=== PATIENT | female | born 1945 | race Caucasian/White ===

== ENCOUNTER → 2019-12-05 09:49 | Outpatient (BNVA) | payer MEDICARE, OTHER, SELFPAY | PROVIDERS: Family Provider Family Medicine; PCP Family Medicine; Visit Provider Internal Medicine Rheumatology | DX: Z79.899 Other long term (current) drug therapy (principal); Z11.59 Encounter for screening for other viral diseases; Z11.1 Encounter for screening for respiratory tuberculosis; R76.8 Other specified abnormal immunological findings in serum; M19.90 Unspecified osteoarthritis, unspecified site; Z72.89 Other problems related to lifestyle | CPT/HCPCS: 36415; 80076; 82565; 85025; 85651; 86140; 86480; 86704; 86803; 87340 ==

== ENCOUNTER → 2019-12-05 10:04 | Outpatient (BNVA) | payer MEDICARE, OTHER, SELFPAY | PROVIDERS: Family Provider Family Medicine; PCP Family Medicine; Visit Provider Internal Medicine Rheumatology | DX: Z79.899 Other long term (current) drug therapy (principal); R76.8 Other specified abnormal immunological findings in serum; M19.90 Unspecified osteoarthritis, unspecified site | CPT/HCPCS: 85025 ==

== ENCOUNTER → 2019-12-10 11:25 | Outpatient (BNVA) | payer MEDICARE, OTHER, SELFPAY | PROVIDERS: Family Provider Family Medicine; PCP Family Medicine; Visit Provider Internal Medicine Rheumatology | DX: M10.9 Gout, unspecified (principal); M81.0 Age-related osteoporosis without current pathological fracture | CPT/HCPCS: 36415; 82310; 84550 ==

== ENCOUNTER 2019-12-13 10:22 | Outpatient (CLI) | payer MEDICARE, OTHER, SELFPAY ==
[2019-12-13 10:35] VITALS: BP 162/83; PULSE 57; RESP 16; TEMP 36.7; O2SAT 97
[2019-12-13] MEDS: denosumab 60 mg SDV SUBCUT (10:40)
[2019-12-13 10:47] VITALS: BP 160/88; PULSE 57; RESP 16; TEMP 36.5; O2SAT 97
== END 2019-12-13 10:23 | disposition home or self-care (01) ==
LOC: RHEOACUTE 10:23
PROVIDERS: Family Provider Family Medicine; PCP Family Medicine; Visit Provider Internal Medicine Rheumatology
DX: M81.0 Age-related osteoporosis without current pathological fracture (principal)
CPT/HCPCS: 96372; J0897

== ENCOUNTER 2019-12-13 10:54 | Outpatient (CLI) | payer MEDICARE, OTHER, SELFPAY ==
--- NOTE | 2019-12-13 11:06 | XR_ITS ---
WS: [id number] LUMBAR SPINE FLEXION AND EXTENSION TECHNIQUE: 3 views of the lumbar spine: Lateral neutral, flexion, and extension views. CLINICAL INFORMATION: LOW BACK PAIN COMPARISON: None. FINDINGS: Normal lumbar alignment on the neutral view. Chronic appearing compression of the L1 vertebral body with loss of approximately 60% vertebral body height. Anterior wedging. This is new since 2013. Disc space narrowing worse at L3-L4 L4-L5 and L5-S1 . Moderate facet arthropathy lower lumbar spine. No instability on flexion-extension. Aortic calcific ation. Spinal stimulator. XR/XR lumbar spine f/e only [id number] IMPRESSION: 1. Compression of the L1 vertebral body with loss of approximately 60% vertebr al body height with anterior wedging. This is new since 2013. 2. Disc space narrowing worse at L3-L4, L4-L5, and L5-S1. 3. No instability on flexion-extension.
--- NOTE | 2019-12-13 11:06 | CT_ITS ---
WS: [id number] CT LUMBAR SPINE TECHNIQUE: Noncontrast CT of the lumbar spine with coronal and sagittal reformatted images. CLINICAL INFORMATION: FRACTURE,PAIN COMPARISON: June 10, 2014 DLP: 1107.[address] scans at [facility] use at least one of these dose optimization techniques: automat ed exposure control; mA and/or kV adjustment per patient size (includes targeted exams where dose is matched to clinical indication); or iterative reconstruction. FINDINGS: Mild lumbar curve convex left. Compression of the L1 vertebral body with loss of approximately 60% ve rtebral body height and anterior wedging is new since 2013. Mild retropulsion posterior superior maikol ex with mild central canal stenosis. L1-L2: Normal. L2-L3: Mild annular bulging with a tiny central protrusion. Slight effacement of ventral thecal sac. Slight narrowing of the subarticular recess. Spinal canal and foramen are patent. Mild facet arthropa thy. L3-L4: Mild annular bulging with mild central canal stenosis. Moderate facet arthropathy. Mild right and no significant left foraminal narrowing. Mild central canal stenosis. L4-L5: Mild disc bulging with narrowing of the left greater than right subarticular recess. Slight im pingement traversing L5 nerve roots. Mild left and no significant right foraminal narrowing. Mild to moderate facet arthropathy. L5-S1: Shallow right pericentral protrusion with slight contact of the right S1 nerve root. Recommend correlation for S1 nerve root symptoms. Foramen are patent. Mild to moderate facet arthropathy. Visualized pelvic bony structures: Normal. Paravertebral soft tissues: Normal. CT/CT lumbar spine wo con* [id number] IMPRESSION: 1. Chronic appearing compression of the L1 vertebral body with loss of approxi mately 60% vertebral body height is new since 2013. Mild retropulsion of the po sterior superior cortex with mild central canal stenosis. 2. Mild central canal stenosis L3-L4 and L4-L5 due to disc bulging with facet arthropathy and ligament flavum hypertrophy. 3. Shallow right pericentral protrusion L5-S1 contacts the right S1 nerve root . 4. Broad-based central protrusion L4-5 impinges the traversing left L5 nerve r oot. 5. Mild right L3-L4 and left L4-5 foraminal narrowing.
--- NOTE | 2019-12-13 11:06 | CT_ITS ---
WS: [id number] CT THORACIC SPINE TECHNIQUE: Noncontrast CT of the thoracic spine with coronal and sagittal reformatted images. CLINICAL INFORMATION: FRACTURE,PAIN COMPARISON: June 10, 2014 DLP: 1913.[address] scans at [facility] use at least one of these dose optimization techniques: automat ed exposure control; mA and/or kV adjustment per patient size (includes targeted exams where dose is matched to clinical indication); or iterative reconstruction. FINDINGS: Mild thoracic curve convex right. Spinal stimulator with electrodes T7-T8 level unchanged. No acute a ppearing compression fractures in the thoracic spine. Compression of the L1 vertebral body discussed on lumbar spine CT. No high-grade central canal stenosis. Disc space heights and vertebral body heights are well preserve d. Mild chronic emphysematous changes. Adrenal glands are normal. CT/CT thoracic spin wo con* [id number] IMPRESSION: 1. Mild thoracic curve convex right. No acute appearing compression fractures in the thoracic spine. 2. No high-grade central canal stenosis. 3. Spinal stimulator unchanged. 4. L1 vertebral body compression discussed on the lumbar spine CT
== END 2019-12-13 10:55 | disposition home or self-care (01) ==
LOC: RADWPI 10:59
PROVIDERS: Family Provider Family Medicine; PCP Family Medicine; Visit Provider Licensed Practical Nurse
DX: M51.06 Intervertebral disc disorders with myelopathy, lumbar region (principal); M48.061 Spinal stenosis, lumbar region without neurogenic claudication; M51.27 Other intervertebral disc displacement, lumbosacral region
CPT/HCPCS: 72120; 72128; 72131

== ENCOUNTER → 2019-12-20 10:40 | Outpatient (BNVA) | payer MEDICARE, OTHER, SELFPAY | PROVIDERS: Family Provider Family Medicine; PCP Family Medicine; Referring Provider Licensed Practical Nurse; Visit Provider Psychiatry & Neurology Neurology | DX: M54.16 Radiculopathy, lumbar region (principal); F17.210 Nicotine dependence, cigarettes, uncomplicated | CPT/HCPCS: 95886; 95909 ==

== ENCOUNTER → 2020-03-03 14:09 | Outpatient (BNVA) | payer MEDICARE, OTHER, SELFPAY | PROVIDERS: Family Provider Family Medicine; PCP Family Medicine; Visit Provider Internal Medicine | DX: M25.50 Pain in unspecified joint (principal); M10.9 Gout, unspecified; M81.0 Age-related osteoporosis without current pathological fracture; M54.2 Cervicalgia; M16.0 Bilateral primary osteoarthritis of hip; M19.042 Primary osteoarthritis, left hand; M19.041 Primary osteoarthritis, right hand; M85.89 Other specified disorders of bone density and structure, multiple sites | CPT/HCPCS: 72040; 73120; 73522; 99214 ==

== ENCOUNTER 2020-03-03 15:42 | Outpatient (CLI) | payer MEDICARE, OTHER, SELFPAY ==
--- NOTE | 2020-03-03 15:50 | XR_ITS ---
WS: [id number] HIPS BILATERAL TECHNIQUE: 5 views bilateral hips Including pelvis CLINICAL INFORMATION: si and hip pain COMPARISON: None. FINDINGS: Osteopenia. Mild degenerative arthritis both hips. No acute fractures. Pelvic phleboliths. Normal vis ualized pubic rami. Mild degenerative arthritis with marginal sclerosis involving the right greater t abraham left sacroiliac joints. No other significant findings. XR/XR hip BI 3-4V wo/w pel [id number] IMPRESSION: 1. Mild degenerative arthritis both hips and sacroiliac joints right greater t abraham left. 2. Osteopenia.
--- NOTE | 2020-03-03 15:50 | XR_ITS ---
WS: [id number] CERVICAL SPINE TECHNIQUE: 3 views of the cervical spine CLINICAL INFORMATION: neck pain COMPARISON: 2019 FINDINGS: Osteopenia. Mild spondylitic changes. Disc space narrowing worse at C5-6. Trace retrolisthesis C5 on C6. Normal prevertebral soft tissues. Mild facet arthropathy. Normal C1-2 articulation. No significan t changes since March 06, 2019 XR/XR cervical spine 3V* [id number] IMPRESSION: 1. Mild spondylitic changes with osteopenia. 2. Trace retrolisthesis C5 on C6 with mild disc space narrowing.
--- NOTE | 2020-03-03 15:50 | XR_ITS ---
WS: [id number] TECHNIQUE: 2 views of the left hand CLINICAL INFORMATION: hand pain COMPARISON: None. FINDINGS: Osteopenia Normal metacarpals. Normal MCP joint. Metacarpal heads are normal in appearance. IP joint narrowing w orse involving the fourth and fifth DIP joints. No evidence of acute fracture or dislocation. Mild de generative arthritis at the first CMC. Radiocarpal joint: Mild degenerative narrowing Carpal bones: Normal. XR/XR hand LT 2V [id number] IMPRESSION: Mild degenerative arthritis worse involving the first CMC and fourth and fifth DIP joints.
--- NOTE | 2020-03-03 15:50 | XR_ITS ---
WS: [id number] TECHNIQUE: 2 views of the right hand CLINICAL INFORMATION: hand pain COMPARISON: August 07, 2018 FINDINGS: Osteopenia. Normal metacarpals. Normal MCP joint. Metacarpal heads are normal in appearance. Mild IP joint narrow ing.. No evidence of acute fracture or dislocation. Radiocarpal joint: Mild degenerative narrowing. Carpal bones: Normal. XR/XR hand RT 2V [id number] IMPRESSION: Mild degenerative osteoarthritis. No significant erosive changes.
== END 2020-03-03 15:43 | disposition home or self-care (01) ==
LOC: RADWPI 15:48
PROVIDERS: Family Provider Family Medicine; PCP Family Medicine; Visit Provider Internal Medicine
DX: M54.2 Cervicalgia (principal); M16.0 Bilateral primary osteoarthritis of hip; M19.042 Primary osteoarthritis, left hand; M19.041 Primary osteoarthritis, right hand; M85.89 Other specified disorders of bone density and structure, multiple sites
CPT/HCPCS: 72040; 73120; 73522

== ENCOUNTER 2020-03-07 08:32 | Outpatient (CLI) | payer MEDICARE, OTHER, SELFPAY ==
--- NOTE | 2020-03-07 09:00 | IR_ITS ---
WS: [id number] MYELOGRAM LUMBAR SPINE Fluoroscopic guided lumbar myelogram CLINICAL INFORMATION: lumbar pain COMPARISON: None. TECHNIQUE: The procedure, including risks, benefits, and complications, were discussed with the patie nt who agreed to proceed. A timeout was performed to confirm correct patient, procedure, and site. Using sterile technique, the patient was prepped and draped in the usual sterile fashion. After admin istration of local anesthesia using 1% preservative-free lidocaine and using fluoroscopic guidance, a 22-gauge spinal needle was advanced into the subarachnoid space at the L3-L4 level. Subsequently 13 cc of Omnipaque 240 was administered into the thecal sac. The needle was removed and hemostasis was a chieved. Spot fluoroscopic images were obtained. FLUOROSCOPIC TIME: 0.9 minutes. Spot fluoroscopic images demonstrate mild lumbar curve convex left. Cholecystectomy clips. Spinal sti mulator partially visualized. Compression of the L1 vertebral body with mild retropulsion of the post erior superior cortex. Mild central canal stenosis at this level. Disc space narrowing worse at L2-L3 L3-L4 with endplate degenerative changes. Aortic calcification. No instability on flexion-extension. Please see CT myelogram report for additional detail. IR/IR myelogram sp lumbar [id number] IMPRESSION: 1. Uncomplicated lumbar myelogram. 2. Moderate compression with anterior wedging of the L1 vertebral body not sig nificantly changed since December 13, 2019 3. Disc space narrowing worse at L3-4. 4. No instability on flexion-extension.
[2020-03-07] MEDS: iohexol 240 mg/mL 50 mL Btl INTRATHECA (09:40)
--- NOTE | 2020-03-07 11:30 | CT_ITS ---
WS: [id number] CT LUMBAR SPINE TECHNIQUE: Contrast-enhanced CT of the lumbar spine with coronal and sagittal reformatted images. CLINICAL INFORMATION: lumbar pain COMPARISON: None. DLP: 2007.[address] scans at [facility] use at least one of these dose optimization techniques: automat ed exposure control; mA and/or kV adjustment per patient size (includes targeted exams where dose is matched to clinical indication); or iterative reconstruction. FINDINGS: Mild lumbar curve. Chronic appearing compression L1 vertebral body with mild retropulsion of the post erior superior cortex. This is unchanged since 12-30 CT. Mild central canal stenosis. L1-L2: Normal. L2-L3: Mild disc bulging with a tiny central protrusion. Slight effacement of ventral thecal sac. Sli ght narrowing of the right subarticular recess. Spinal canal and foramen are patent. Mild facet arthr opathy. L3-L4: Mild annular bulging with slight effacement of ventral thecal sac. Mild central canal stenosis . Narrowing of the subarticular recess bilaterally. Mild right and no significant left foraminal narr owing. Moderate facet arthropathy. L4-L5: Mild disc bulging with osteophytic ridging. Slight narrowing of the subarticular recess bilate rally. Mild right and no significant left foraminal narrowing. Moderate facet arthropathy. L5-S1: Mild annular bulging with a tiny shallow central protrusion. Slight effacement of ventral thec al sac. Spinal canal and foramen are patent. Mild facet arthropathy. Visualized pelvic bony structures: Normal. Paravertebral soft tissues: Normal. CT/CT lumbar spine w con [id number] IMPRESSION: 1. Compression of the L1 vertebral body unchanged since December 13, 2019 with mi ld retropulsion of the posterior superior cortex. This results in mild central canal stenosis. Loss of approximately 50% vertebral body height. 2. Tiny right subarticular protrusion L2-3 with impingement on the right subar ticular recess and traversing right L3 nerve root. 3. Mild central canal stenosis L3-L4 and L4-L5 with slight narrowing subarticu lar recess bilaterally. 4. Mild foraminal narrowing more prominent at right L3-4 and left L4-5. 5. Moderate facet arthropathy L3-L4 and L4-L5.
== END 2020-03-07 08:33 | disposition home or self-care (01) ==
LOC: RADWPI 08:36
PROVIDERS: Family Provider Family Medicine; PCP Family Medicine; Visit Provider Specialist
DX: M54.5 Low back pain (principal); M51.16 Intervertebral disc disorders with radiculopathy, lumbar region
CPT/HCPCS: 62304; 72120; 72132; J2001; Q9966

== ENCOUNTER → 2020-03-20 11:21 | Outpatient (BNVA) | payer MEDICARE, OTHER, SELFPAY | PROVIDERS: Family Provider Family Medicine; PCP Family Medicine; Visit Provider Internal Medicine Rheumatology | DX: M54.41 Lumbago with sciatica, right side (principal); Z79.899 Other long term (current) drug therapy; Z11.59 Encounter for screening for other viral diseases; M25.50 Pain in unspecified joint; M54.42 Lumbago with sciatica, left side; M54.9 Dorsalgia, unspecified; F17.210 Nicotine dependence, cigarettes, uncomplicated; Z79.891 Long term (current) use of opiate analgesic; Z72.89 Other problems related to lifestyle | CPT/HCPCS: 36415; 80053; 82306; 83735; 84100; 84443; 84550; 85025; 85651; 86140; 86431; 86705; 86706; 86709; 86803; 87340; 99204 ==

== ENCOUNTER → 2020-04-03 10:49 | Outpatient (BNVA) | payer MEDICARE, OTHER, SELFPAY | PROVIDERS: Family Provider Family Medicine; PCP Family Medicine; Visit Provider Internal Medicine | DX: M10.9 Gout, unspecified (principal); M81.0 Age-related osteoporosis without current pathological fracture; M19.90 Unspecified osteoarthritis, unspecified site; Z79.899 Other long term (current) drug therapy; S32.010D Wedge compression fracture of first lumbar vertebra, subsequent encounter for fracture with routine healing; F17.210 Nicotine dependence, cigarettes, uncomplicated; M48.00 Spinal stenosis, site unspecified; X58.XXXD Exposure to other specified factors, subsequent encounter | CPT/HCPCS: 36415; 84550; 86812; 99213 ==

== ENCOUNTER → 2020-04-08 12:51 | Outpatient (BNVA) | payer MEDICARE, OTHER, SELFPAY | PROVIDERS: Family Provider Family Medicine; PCP Family Medicine; Visit Provider Anesthesiology Pain Medicine | DX: M47.816 Spondylosis without myelopathy or radiculopathy, lumbar region (principal); M54.9 Dorsalgia, unspecified; F17.210 Nicotine dependence, cigarettes, uncomplicated; Z79.891 Long term (current) use of opiate analgesic | CPT/HCPCS: 64493; 64494; 64495; J3490 ==

== ENCOUNTER → 2020-04-22 09:14 | Outpatient (BNVA) | payer MEDICARE, OTHER, SELFPAY | PROVIDERS: Family Provider Family Medicine; PCP Family Medicine; Visit Provider Anesthesiology Pain Medicine | DX: M48.061 Spinal stenosis, lumbar region without neurogenic claudication (principal); M47.816 Spondylosis without myelopathy or radiculopathy, lumbar region; M54.16 Radiculopathy, lumbar region; S32.010D Wedge compression fracture of first lumbar vertebra, subsequent encounter for fracture with routine healing; X58.XXXD Exposure to other specified factors, subsequent encounter; M54.9 Dorsalgia, unspecified; M25.50 Pain in unspecified joint; F17.210 Nicotine dependence, cigarettes, uncomplicated; Z96.89 Presence of other specified functional implants | CPT/HCPCS: 99213 ==

== ENCOUNTER → 2020-05-06 14:04 | Outpatient (BNVA) | payer MEDICARE, OTHER, SELFPAY | PROVIDERS: Family Provider Family Medicine; PCP Family Medicine; Visit Provider Anesthesiology Pain Medicine | DX: M47.816 Spondylosis without myelopathy or radiculopathy, lumbar region (principal); M54.16 Radiculopathy, lumbar region; M51.16 Intervertebral disc disorders with radiculopathy, lumbar region; M54.9 Dorsalgia, unspecified | CPT/HCPCS: 64635; 64636; J1030 ==

== ENCOUNTER → 2020-05-20 12:45 | Outpatient (BNVA) | payer MEDICARE, OTHER, SELFPAY | PROVIDERS: Family Provider Family Medicine; PCP Family Medicine; Visit Provider Anesthesiology Pain Medicine | DX: M47.816 Spondylosis without myelopathy or radiculopathy, lumbar region (principal); M54.9 Dorsalgia, unspecified; Z79.891 Long term (current) use of opiate analgesic | CPT/HCPCS: 64635; 64636; J1030 ==

== ENCOUNTER → 2020-06-04 11:00 | Outpatient (BNVA) | payer MEDICARE, OTHER, SELFPAY | PROVIDERS: Family Provider Family Medicine; PCP Family Medicine; Visit Provider Internal Medicine | DX: M81.0 Age-related osteoporosis without current pathological fracture (principal); M10.9 Gout, unspecified; M19.90 Unspecified osteoarthritis, unspecified site; S32.010D Wedge compression fracture of first lumbar vertebra, subsequent encounter for fracture with routine healing; X58.XXXD Exposure to other specified factors, subsequent encounter | CPT/HCPCS: 36415; 80053; 85025; 99213 ==

== ENCOUNTER → 2020-06-16 09:35 | Outpatient (BNVA) | payer MEDICARE, OTHER, SELFPAY | PROVIDERS: Family Provider Family Medicine; PCP Family Medicine; Visit Provider Anesthesiology Pain Medicine | DX: M48.061 Spinal stenosis, lumbar region without neurogenic claudication (principal); M54.16 Radiculopathy, lumbar region; M47.816 Spondylosis without myelopathy or radiculopathy, lumbar region; S32.010D Wedge compression fracture of first lumbar vertebra, subsequent encounter for fracture with routine healing; X58.XXXD Exposure to other specified factors, subsequent encounter; M54.9 Dorsalgia, unspecified; M25.50 Pain in unspecified joint; Z96.89 Presence of other specified functional implants | CPT/HCPCS: 99213 ==

== ENCOUNTER 2020-06-19 10:59 | Outpatient (CLI) | payer MEDICARE, OTHER, SELFPAY ==
[2020-06-19 11:00] VITALS: BP 142/78; PULSE 59; RESP 16; TEMP 36.3; O2SAT 98
[2020-06-19] MEDS: denosumab 60 mg SDV SUBCUT (11:05)
[2020-06-19 11:35] VITALS: BP 151/80; PULSE 60; RESP 16; TEMP 36.3; O2SAT 98
== END 2020-06-19 11:00 | disposition home or self-care (01) ==
LOC: RHEOACUTE 11:00
PROVIDERS: Family Provider Family Medicine; PCP Family Medicine; Visit Provider Internal Medicine Rheumatology
DX: M81.0 Age-related osteoporosis without current pathological fracture (principal)
CPT/HCPCS: 96372; J0897

== ENCOUNTER → 2020-07-30 13:45 | Outpatient (BNVA) | payer MEDICARE, OTHER, SELFPAY | PROVIDERS: Family Provider Family Medicine; PCP Family Medicine; Visit Provider Internal Medicine | DX: M19.90 Unspecified osteoarthritis, unspecified site (principal); M47.816 Spondylosis without myelopathy or radiculopathy, lumbar region; M81.0 Age-related osteoporosis without current pathological fracture; Z87.81 Personal history of (healed) traumatic fracture; M10.9 Gout, unspecified; Z87.891 Personal history of nicotine dependence | CPT/HCPCS: 99214 ==

== ENCOUNTER 2020-07-30 15:08 | Outpatient (CLI) | payer MEDICARE, OTHER, SELFPAY ==
--- NOTE | 2020-07-30 15:19 | XR_ITS ---
WS: [id number] SI JOINTS TECHNIQUE: 3 views of the sacroiliac joints CLINICAL INFORMATION: L40.9 - Psoriasis, unspecified COMPARISON: None. FINDINGS: Osteopenia. Vascular calcification. Degenerative arthritis involving both sacroiliac joints. No signi ficant erosive changes. Chronic appearing sclerosis about the right greater than left sacroiliac join t. Pelvic phleboliths. XR/XR sacroiliac jts m 3V [id number] IMPRESSION: 1. Degenerative arthritis both sacroiliac joints with marginal sclerosis right greater than left. 2. No significant erosive changes.
== END 2020-07-30 15:09 | disposition home or self-care (01) ==
PROVIDERS: PCP Family Medicine; Visit Provider Internal Medicine
DX: L40.9 Psoriasis, unspecified (principal); M46.1 Sacroiliitis, not elsewhere classified
CPT/HCPCS: 72202; 80053; 82550; 82607; 82784; 83516; 85025

== ENCOUNTER 2020-12-15 12:44 | Outpatient (CLI) | payer MEDICARE, OTHER, SELFPAY ==
[2020-12-15 13:17] LABS: Hematocrit 37.4 % (37.0-47.0); Hemoglobin 12.4 g/dL (11.5-15.3); Mean Corpuscular HGB Conc 33.2 g/dL (30.0-36.0); Mean Corpuscular Hemoglobin 31.1 pg (28.0-34.0); Mean Corpuscular Volume 93.7 fL (81-99); Mean Platelet Volume 9.8 fL (7.4-10.4); Platelet Count 441 10^3/cmm (130-400); Red Blood Count 3.99 10^6/uL (4.1-5.3); Red Cell Distribution Width 14.8 % (12.1-15.1); White Blood Count 10.8 10^3/uL (4.0-10.0)
[2020-12-15 13:38] LABS: Absolute Eosinophils 0.8 10^3/cmm (0.0-0.7); Absolute Neutrophil 5.4 10^3/cmm (1.4-6.5); Absolute Segmented Neutrophil 5.4 10/cmm (1.6-7.1); Anisocytosis Trace; Basophils Absolute 0.1 10^3/cmm (0.0-0.2); Eosinophils 8 %; Lymphocytes 37 %; Monocytes Absolute 0.3 10^3/cmm (0.1-0.6); Platelet Estimate Normal (Normal); Poikilocytosis Trace; Segmented Neutrophils 50 %; Total Cells Counted 100 (0-100)
[2020-12-15 13:55] LABS: 25 Hydroxy Vitamin D 47 ng/mL (30-100); Alanine Aminotransferase 6 U/L (0-33); Albumin Level 4.1 g/dL (3.5-5.2); Alkaline Phosphatase 67 IU/L (35-105); Aspartate Amino Transferase 12 U/L (0-32); Blood Urea Nitrogen 10 mg/dL (8-23); Calcium 9.1 mg/dL (8.5-10.5); Carbon Dioxide 25 mmol/L (22-29); Chloride 99 mmol/L (98-107); Globulin 2.5 g/dL (1.3-4.6); Glucose 95 mg/dL (65-115); Osmolality Calculated 273 mOsm/kg (285-295); Sodium 132 mmol/L (136-145); Total Bilirubin 0.2 mg/dL (0.15-1.2); Total Protein 6.6 g/dL (6.6-8.7)
== END 2020-12-15 12:45 | disposition home or self-care (01) ==
PROVIDERS: PCP Family Medicine; Visit Provider Internal Medicine
DX: M47.816 Spondylosis without myelopathy or radiculopathy, lumbar region (principal); M10.9 Gout, unspecified; M19.90 Unspecified osteoarthritis, unspecified site
CPT/HCPCS: 80053; 82306; 85007; 85027

== ENCOUNTER 2021-01-01 08:00 | Outpatient (CLI) | payer MEDICARE, OTHER, SELFPAY ==
[2021-01-01] MEDS: denosumab 60 mg SDV SUBCUT (08:20)
== END 2021-01-01 08:01 | disposition home or self-care (01) ==
LOC: ONCMED 08:03
PROVIDERS: PCP Family Medicine; Visit Provider Internal Medicine
DX: M81.0 Age-related osteoporosis without current pathological fracture (principal)
CPT/HCPCS: 96372; J0897

== ENCOUNTER → 2021-02-23 10:11 | Outpatient (BNVA) | payer MEDICARE, OTHER, SELFPAY | PROVIDERS: PCP Family Medicine; Visit Provider Internal Medicine Rheumatology | DX: M19.90 Unspecified osteoarthritis, unspecified site (principal); M81.0 Age-related osteoporosis without current pathological fracture; Z79.899 Other long term (current) drug therapy | CPT/HCPCS: 36415; 80053; 85025; 85651; 86140 ==

== ENCOUNTER → 2021-02-26 13:42 | Outpatient (BNVA) | payer MEDICARE, OTHER, SELFPAY | PROVIDERS: PCP Family Medicine; Visit Provider Internal Medicine | DX: M19.90 Unspecified osteoarthritis, unspecified site (principal); Z79.899 Other long term (current) drug therapy; Z87.81 Personal history of (healed) traumatic fracture; M10.9 Gout, unspecified; F17.210 Nicotine dependence, cigarettes, uncomplicated | CPT/HCPCS: 99213; 99214 ==

== ENCOUNTER → 2021-04-02 10:28 | Outpatient (BNVA) | payer MEDICARE, OTHER, SELFPAY | PROVIDERS: PCP Family Medicine; Visit Provider Anesthesiology Pain Medicine | DX: M47.816 Spondylosis without myelopathy or radiculopathy, lumbar region (principal); M48.061 Spinal stenosis, lumbar region without neurogenic claudication; M54.16 Radiculopathy, lumbar region; S32.010D Wedge compression fracture of first lumbar vertebra, subsequent encounter for fracture with routine healing; M79.605 Pain in left leg; M25.50 Pain in unspecified joint; F17.210 Nicotine dependence, cigarettes, uncomplicated; Z96.89 Presence of other specified functional implants; X58.XXXD Exposure to other specified factors, subsequent encounter; Z79.891 Long term (current) use of opiate analgesic; M81.0 Age-related osteoporosis without current pathological fracture; M51.36 Other intervertebral disc degeneration, lumbar region | CPT/HCPCS: 72110; 99214 ==

== ENCOUNTER 2021-04-02 13:53 | Outpatient (CLI) | payer MEDICARE, OTHER, SELFPAY ==
--- NOTE | 2021-04-02 14:17 | XR_ITS ---
WS: [id number] Lumbar spine, AP erect, lateral erect with flexion, extension and neutral position, L5-S1 spot, 2020 Clinical Data: M47.816 - Spondylosis without myelopathy or radiculopathy... Comparison: Lumbar myelogram, 03/07/2020. Findings: No subluxation is seen. There is a compression fracture of the L1 vertebral body with loss of at leas t 50% of the anterior and central vertebral body height. There is minimal retropulsion of the posteri or superior aspect of L1 of 0.4 cm. There is degenerative disc narrowing at L2-L3 through L5-S1. Ther e is diffuse osteoporosis and minimal osteoarthritic change of all lumbar vertebral bodies. On flexio n and extension there is mild limitation of motion. No subluxation occurs. There is calcification of the wall of the abdominal aorta with no aneurysm. There are clips in the right upper quadrant from a cholecystectomy. There is a generator for epidural stimulator leads. The transverse processes and SI joints are normal. XR/XR lumbar spine min 4V [id number] Impression: 1. Osteoporosis, osteoarthritis and multilevel degenerative disc disease. 2. No change in L1 compression fracture. 3. Limitation of motion on flexion or extension but no subluxation occurs.
== END 2021-04-02 13:54 | disposition home or self-care (01) ==
PROVIDERS: PCP Family Medicine; Visit Provider Anesthesiology Pain Medicine
DX: M47.816 Spondylosis without myelopathy or radiculopathy, lumbar region (principal); M81.0 Age-related osteoporosis without current pathological fracture; M51.36 Other intervertebral disc degeneration, lumbar region
CPT/HCPCS: 72110

== ENCOUNTER → 2021-04-28 14:26 | Outpatient (BNVA) | payer MEDICARE, OTHER, SELFPAY | PROVIDERS: PCP Family Medicine; Visit Provider Anesthesiology Pain Medicine | DX: M54.16 Radiculopathy, lumbar region (principal); F17.210 Nicotine dependence, cigarettes, uncomplicated; Z79.891 Long term (current) use of opiate analgesic | CPT/HCPCS: 64483; 64484; J1100; J3490 ==

== ENCOUNTER 2021-05-08 09:47 | Outpatient (CLI) | payer MEDICARE, OTHER, SELFPAY ==
--- NOTE | 2021-05-08 10:15 | USCV_ITS ---
Nilda Prado Age: 75 Gender: F : 1945 Exam Date: 05/08/2021 09:41 Ordering Phys: Risa San MD Technologist: Sapna Gaxiola Exam Location: [facility] [place] Indication: PAD RIGHT LEFT Brachial 178.00 mmHg Brachial 175.00 mmHg Pressure (mmHg) Waveform Pressure (mmHg) Waveform 170.00 PRODUCT SUPPORT MANAGER 176.00 171.00 DPA 175.00 0.98 Ankle/Brachial Index 0.98 144.00 Pre-Exercise Toe Pressure 139.00 0.81 Pre-Exercise Toe/Brachial Index 0.78 FINDINGS Normal resting ABIs bilaterally Normal resting TBIs bilateral CONCLUSIONS Normal resting ABIs and TBIs bilaterally, suggesting no significant stenosis Dr Janine Moore MD [facility] (Electronically Signed) Final Date: 11 May 2021 09:09 S
== END 2021-05-08 09:48 | disposition home or self-care (01) ==
PROVIDERS: PCP Family Medicine; Visit Provider Internal Medicine
DX: M25.50 Pain in unspecified joint (principal)
CPT/HCPCS: 93922

== ENCOUNTER → 2021-05-12 09:50 | Outpatient (BNVA) | payer MEDICARE, OTHER, SELFPAY | PROVIDERS: PCP Family Medicine; Visit Provider Anesthesiology Pain Medicine | DX: G89.29 Other chronic pain (principal); M54.16 Radiculopathy, lumbar region; M48.061 Spinal stenosis, lumbar region without neurogenic claudication; M47.816 Spondylosis without myelopathy or radiculopathy, lumbar region; M25.50 Pain in unspecified joint; S32.010D Wedge compression fracture of first lumbar vertebra, subsequent encounter for fracture with routine healing; X58.XXXD Exposure to other specified factors, subsequent encounter; M54.42 Lumbago with sciatica, left side; Z96.89 Presence of other specified functional implants; F17.210 Nicotine dependence, cigarettes, uncomplicated; Z79.891 Long term (current) use of opiate analgesic | CPT/HCPCS: 99214 ==

== ENCOUNTER 2021-05-15 09:03 | Outpatient (CLI) | payer MEDICARE, OTHER, SELFPAY ==
--- NOTE | 2021-05-15 09:15 | CT_ITS ---
WS: [id number] CT LUMBAR SPINE TECHNIQUE: Noncontrast CT of the lumbar spine with coronal and sagittal reformatted images. CLINICAL INFORMATION: M54.16 - Radiculopathy, lumbar region COMPARISON: CT March 07, 2020 DLP: 1921.[address] scans at [facility] use at least one of these dose optimization techniques: automated e xposure control; mA and/or kV adjustment per patient size (includes targeted exams where dose is matc hed to clinical indication); or iterative reconstruction. FINDINGS: FINDINGS: Mild lumbar curve. Chronic appearing compression L1 vertebral body with mild retropulsion of the post erior superior cortex and loss of approximately 50% vertebral body height. This is unchanged since . Mild central canal stenosis is stable. L1-L2: Normal. L2-L3: Mild disc bulging with a tiny central protrusion. Slight effacement of ventral thecal sac. Sta ble narrowing of the subarticular recess bilaterally. Spinal canal and foramen are otherwise patent. Mild facet arthropathy. L3-L4: Mild annular bulging with slight effacement of ventral thecal sac. Mild central canal stenosis is stable. Narrowing of the subarticular recess bilaterally. Mild right and no significant left fora hortensia narrowing. Moderate facet arthropathy. L4-L5: Mild disc bulging with osteophytic ridging. Slight narrowing of the subarticular recess bilat erally. Mild right and no significant left foraminal narrowing. Moderate facet arthropathy. L5-S1: Mild annular bulging with a tiny shallow central protrusion. Slight effacement of ventral thec al sac. Spinal canal and foramen are patent. Mild facet arthropathy. CT/CT lumbar spine wo con* [id number] IMPRESSION: 1. L1 compression fracture with loss of 50% vertebral body height unchanged co mpared to the previous CT February 2020. Mild retropulsion of the posterior superio r cortex with mild central canal stenosis. 2. Mild central canal stenosis L3-4 and L4-5 with narrowing of the subarticula r recess bilaterally is stable. 3. Overall no significant changes from previous. 4. Mild foraminal narrowing described above more prominent at right L3-4 and L 4-5 unchanged.
== END 2021-05-15 09:04 | disposition home or self-care (01) ==
LOC: RADWPI 09:05
PROVIDERS: PCP Family Medicine; Visit Provider Anesthesiology Pain Medicine
DX: M54.16 Radiculopathy, lumbar region (principal); M48.061 Spinal stenosis, lumbar region without neurogenic claudication; S32.019A Unspecified fracture of first lumbar vertebra, initial encounter for closed fracture; X58.XXXA Exposure to other specified factors, initial encounter
CPT/HCPCS: 72131

== ENCOUNTER → 2021-05-26 10:21 | Outpatient (BNVA) | payer MEDICARE, OTHER, SELFPAY | PROVIDERS: PCP Family Medicine; Visit Provider Anesthesiology Pain Medicine | DX: M48.061 Spinal stenosis, lumbar region without neurogenic claudication (principal); M54.16 Radiculopathy, lumbar region; M47.816 Spondylosis without myelopathy or radiculopathy, lumbar region; S32.010D Wedge compression fracture of first lumbar vertebra, subsequent encounter for fracture with routine healing; X58.XXXD Exposure to other specified factors, subsequent encounter; M79.604 Pain in right leg; M79.605 Pain in left leg; M25.50 Pain in unspecified joint; Z96.89 Presence of other specified functional implants; Z79.891 Long term (current) use of opiate analgesic | CPT/HCPCS: 99214 ==

== ENCOUNTER → 2021-06-11 11:12 | Outpatient (BNVA) | payer MEDICARE, OTHER, SELFPAY | PROVIDERS: PCP Family Medicine; Visit Provider Internal Medicine | DX: M47.816 Spondylosis without myelopathy or radiculopathy, lumbar region (principal); M25.50 Pain in unspecified joint; M81.0 Age-related osteoporosis without current pathological fracture; M19.90 Unspecified osteoarthritis, unspecified site; Z79.899 Other long term (current) drug therapy | CPT/HCPCS: 36415; 80053; 85025; 85651; 86140 ==

== ENCOUNTER → 2021-06-17 11:08 | Outpatient (BNVA) | payer MEDICARE, OTHER, SELFPAY | PROVIDERS: PCP Family Medicine; Visit Provider Internal Medicine | DX: M81.0 Age-related osteoporosis without current pathological fracture (principal); S32.010D Wedge compression fracture of first lumbar vertebra, subsequent encounter for fracture with routine healing; M19.90 Unspecified osteoarthritis, unspecified site; F17.210 Nicotine dependence, cigarettes, uncomplicated; Y93.9 Activity, unspecified | CPT/HCPCS: 99214 ==

== ENCOUNTER 2021-07-06 12:24 | Outpatient (CLI) | payer MEDICARE, OTHER, SELFPAY ==
[2021-07-06 12:44] VITALS: BP 180/89; PULSE 61; RESP 18; TEMP 36.1; O2SAT 98
[2021-07-06] MEDS: denosumab 60 mg SDV SUBCUT (12:59)
[2021-07-06 13:19] VITALS: BP 153/89; PULSE 60; RESP 18; TEMP 36.2; O2SAT 98
[2021-07-06 14:46] LABS: 25 Hydroxy Vitamin D 69 ng/mL (30-100)
== END 2021-07-06 12:25 | disposition home or self-care (01) ==
LOC: ONCMED 12:27
PROVIDERS: Internal Medicine; PCP Family Medicine; Visit Provider Internal Medicine Medical Oncology
DX: M81.0 Age-related osteoporosis without current pathological fracture (principal)
CPT/HCPCS: 36415; 82306; 96372; J0897

== ENCOUNTER 2021-12-17 11:40 | Outpatient (CLI) | payer MEDICARE, OTHER, SELFPAY ==
[2021-12-17 12:08] LABS: Erythrocyte Sedimentation Rate 12 mm/hr (0-15)
[2021-12-17 12:12] LABS: Basophils # 0.3 10^3/uL (0.0-0.1); Basophils % 2.2 %; Eosinophils # 2.2 10^3/uL (0.0-0.8); Eosinophils % 18.4 %; Hemoglobin 13.3 g/dL (11.5-15.3); Lymphocytes # 3.6 10^3/uL (0.8-4.8); Lymphocytes % 30.2 %; Mean Corpuscular HGB Conc 32.4 g/dL (30.0-36.0); Mean Corpuscular Hemoglobin 30.9 pg (28.0-34.0); Mean Corpuscular Volume 95.3 fl (81-99); Mean Platelet Volume 9.6 fL (7.4-10.4); Monocytes # 1.1 10^3/uL (0.2-0.9); Monocytes % 8.8 %; Neutrophils # 4.81 10^3/uL (1.8-7.7); Nucleated Red Blood Cells % 0 %; Platelet Count 432 10^3/cmm (130-400); Red Cell Distribution Width 15.2 % (12.1-15.1)
[2021-12-17 13:10] LABS: Alanine Aminotransferase 8 U/L (0-33); Albumin Level 4.6 g/dL (3.5-5.2); Alkaline Phosphatase 68 IU/L (35-105); Anion Gap 12.4 (5-19); Aspartate Amino Transferase 14 U/L (0-32); Blood Urea Nitrogen 14 mg/dL (8-23); Calcium 9.9 mg/dL (8.5-10.5); Carbon Dioxide 28 mmol/L (22-29); Chloride 94 mmol/L (98-107); Globulin 3.5 g/dL (1.3-4.6); Glucose 100 mg/dL (65-115); Osmolality Calculated 271 mOsm/kg (285-295); Potassium 4.4 mmol/L (3.5-5.1); Sodium 130 mmol/L (136-145); Total Bilirubin 0.2 mg/dL (0.15-1.2); Total Protein 8.1 g/dL (6.6-8.7)
[2021-12-17 13:24] LABS: 25 Hydroxy Vitamin D 60 ng/mL (30-100)
== END 2021-12-17 11:41 | disposition home or self-care (01) ==
LOC: LAB 11:44
PROVIDERS: PCP Family Medicine; Visit Provider Internal Medicine
DX: M19.90 Unspecified osteoarthritis, unspecified site (principal); M47.816 Spondylosis without myelopathy or radiculopathy, lumbar region; M81.0 Age-related osteoporosis without current pathological fracture; Z79.899 Other long term (current) drug therapy
CPT/HCPCS: 80053; 82306; 85025; 85651

== ENCOUNTER 2022-02-16 10:44 | Outpatient (CLI) | payer MEDICARE, OTHER, SELFPAY ==
[2022-02-16 11:34] LABS: Albumin Level 3.9 g/dL (3.5-5.2); Calcium 9.3 mg/dL (8.5-10.5); Creatinine Clr Calc Pharmacy 57.2352
[2022-02-16 11:50] LABS: 25 Hydroxy Vitamin D 65 ng/mL (30-100)
[2022-02-16 11:51] VITALS: BP 167/92; PULSE 54; RESP 16; TEMP 36.2; O2SAT 96
[2022-02-16] MEDS: denosumab 60 mg SDV SUBCUT (11:57)
[2022-02-16 12:02] VITALS: BP 144/86; PULSE 51; RESP 16; TEMP 36.3; O2SAT 96
== END 2022-02-16 10:45 | disposition home or self-care (01) ==
PROVIDERS: PCP Family Medicine; Referring Provider Internal Medicine; Visit Provider Internal Medicine
DX: M81.0 Age-related osteoporosis without current pathological fracture (principal)
CPT/HCPCS: 36415; 82040; 82306; 82310; 82565; 96372; J0897

== ENCOUNTER → 2022-03-04 11:11 | Outpatient (BNVA) | payer MEDICARE, OTHER, SELFPAY | PROVIDERS: PCP Family Medicine; Visit Provider Internal Medicine | DX: M81.0 Age-related osteoporosis without current pathological fracture (principal); M48.061 Spinal stenosis, lumbar region without neurogenic claudication; M54.16 Radiculopathy, lumbar region; M10.9 Gout, unspecified | CPT/HCPCS: 99214 ==

== ENCOUNTER → 2022-06-01 11:15 | Outpatient (BNVA) | payer MEDICARE, OTHER, SELFPAY | PROVIDERS: PCP Family Medicine; Visit Provider Internal Medicine Rheumatology | DX: M05.79 Rheumatoid arthritis with rheumatoid factor of multiple sites without organ or systems involvement (principal); Z79.899 Other long term (current) drug therapy; Z71.85 Encounter for immunization safety counseling; M81.0 Age-related osteoporosis without current pathological fracture; Z11.59 Encounter for screening for other viral diseases; Z11.1 Encounter for screening for respiratory tuberculosis | CPT/HCPCS: 36415; 80076; 82565; 85025; 85651; 86140; 86480; 86704; 86803; 87340; 99214 ==

== ENCOUNTER 2022-06-09 14:23 | Outpatient (CLI) | payer MEDICARE, OTHER, SELFPAY ==
--- NOTE | 2022-06-09 15:00 | XR_ITS ---
WS: [id number] DEXA (DUAL ENERGY X-RAY ABSORPTIOMETRY) Bone mineral density was performed using a [employer] machine. HISTORY: M81.0 - Age-related osteoporosis without current pathology... COMPARISON: 08/07/2018 Lumbar spine BMD (L1-L4): 1.024 g/cm2 T score: -1.3 Z score: 0.6 Total hip BMD: Left: 0.611 g/cm2. T score: -3.2 Z score: -1.3 Right: 0.649 g/cm2. T score: -2.8 Z score: -1.0 10 year probability of a major osteoporotic fracture is 38.6%. Compared to the prior study from 08/07/2018. Lumbar spine bone mineral density has increased by 9.5%. Bilateral hips bone mineral density has increased by 2.1%. XR/XR DEXA axial skeleton* [id number] IMPRESSION: OSTEOPOROSIS based upon the WHO classification for females. Significant increase in bone mineral density within the lumbar spine and hips.
== END 2022-06-09 14:24 | disposition home or self-care (01) ==
PROVIDERS: PCP Family Medicine; Visit Provider Internal Medicine
DX: M81.0 Age-related osteoporosis without current pathological fracture (principal)
CPT/HCPCS: 77080

== ENCOUNTER → 2022-08-13 11:29 | Outpatient (BNVA) | payer MEDICARE, OTHER, SELFPAY | PROVIDERS: PCP Family Medicine; Visit Provider Internal Medicine | DX: M05.79 Rheumatoid arthritis with rheumatoid factor of multiple sites without organ or systems involvement (principal); M81.0 Age-related osteoporosis without current pathological fracture; M10.9 Gout, unspecified; M54.16 Radiculopathy, lumbar region | CPT/HCPCS: 36415; 80053; 85025; 99214 ==

== ENCOUNTER 2022-08-19 10:22 | Outpatient (CLI) | payer MEDICARE, OTHER, SELFPAY ==
[2022-08-19 10:05] VITALS: BP 167/104; PULSE 69; RESP 18; TEMP 36.4
[2022-08-19] MEDS: denosumab 60 mg SDV SUBCUT (10:40)
[2022-08-19 10:46] VITALS: BP 197/80; PULSE 71; RESP 18; TEMP 36.3; O2SAT 97
--- NOTE | 2022-08-19 10:56 | PC.NURSE ---
Pt presented to infusion suite with elevated BP. She states that she has not taken her medication this morning, but will when she arrives back home. She will monitor her BP throughout the day, and call me back this afternoon with her readings. If her pressure remains elevated, she will contact her PCP. hakan
== END 2022-08-19 10:23 | disposition home or self-care (01) ==
PROVIDERS: PCP Family Medicine; Visit Provider Internal Medicine
DX: M81.0 Age-related osteoporosis without current pathological fracture (principal)
CPT/HCPCS: 96372; J0897

== ENCOUNTER → 2022-11-30 13:35 | Outpatient (BNVA) | payer MEDICARE, OTHER, SELFPAY | PROVIDERS: PCP Family Medicine; Visit Provider Internal Medicine Rheumatology | DX: M05.79 Rheumatoid arthritis with rheumatoid factor of multiple sites without organ or systems involvement (principal); Z79.899 Other long term (current) drug therapy; Z71.85 Encounter for immunization safety counseling; M81.0 Age-related osteoporosis without current pathological fracture | CPT/HCPCS: 99214 ==

== ENCOUNTER 2022-12-07 10:17 | Outpatient (CLI) | payer MEDICARE, OTHER, SELFPAY ==
--- NOTE | 2022-12-07 10:24 | USCV_ITS ---
Nilda Prado Age: 77 Gender: F : 1945 Exam Date: 12/07/2022 10:32 Ordering Phys: Marybel Musa TILE ROOFER TILE ROOFER Technologist: Aneesh Casas Exam Location: [facility] [place] Indication: moderate copd/htn BP: 132 / 75 HR: 62 Rhythm: Sinus Technical Quality: Adequate MEASUREMENTS (Male / Female) Normal Values 2D ECHO LV Diastolic Diameter PLAX 3.4 cm 4.2 - 5.9 / 3.9 - 5.3 cm LV Systolic Diameter PLAX 2.2 cm IVS Diastolic Thickness 1.3 cm 0.6 - 1.0 / 0.6 - 0.9 cm IVS Systolic Thickness 1.4 cm LVPW Diastolic Thickness 1.1 cm 0.6 - 1.0 / 0.6 - 0.9 cm LVPW Systolic Thickness 1.5 cm LVOT Diameter 1.8 cm LV Ejection Fraction 2D Teich 64.9 % LV Ejection Fraction MOD 2C 53.1 % LV Ejection Fraction 2C AL 52.4 % LA Diameter 4.1 cm IVC Diameter 1.2 cm M-MODE Aortic Annulus Diameter 3.4 cm LA Ao Ratio MM 1.2 MV E Point Septal Separation 1.3 cm DOPPLER AV Peak Velocity 115.0 cm/s LVOT Peak Velocity 99.0 cm/s AV Area Cont Eq vti 2.2 cm squared AV Area Cont Eq pk 2.2 cm squared MV Area PHT 5.0 cm squared Mitral E to A Ratio 0.8 MV E' Velocity 36.0 cm/s Mitral E to MV E' Ratio 10.6 Mitral E to LV E' Lateral Ratio 9.4 Mitral E to LV E' Septal Ratio 12.4 TR Peak Velocity 187.3 cm/s TR Peak Gradient 14.0 mmHg TV Peak E Velocity 69.0 cm/s Right Atrial Pressure 3.0 mmHg Pulmonary Artery Systolic Pressu 17.0 mmHg RV Acceleration Time 0.1 s FINDINGS Left Ventricle Normal left ventricular size and systolic function, EF 61 %. Mild left ventricular hypertrophy. No regional wall motion abnormalities. Grade I/IV diastolic dysfunction (abnormal relaxation filling pattern), normal to mildly elevated filling pressures. Right Ventricle The right ventricle is normal in size and function. Right Atrium The right atrium is normal in size. Left Atrium The left atrium is normal in size. Mitral Valve Thickened mitral valve. Trace mitral valve regurgitation. Aortic Valve Thickened aortic valve. Tricuspid Valve Trace tricuspid valve regurgitation. Estimated pulmonary artery peak systolic pressure 17 mmHg Pulmonic Valve Pulmonic valve not well visualized. Pericardium Normal pericardium without effusion. Aorta Normal ascending aorta dimension. IVC Normal inferior vena cava. CONCLUSIONS Normal left ventricular size and systolic function, EF 61 %. Mild left ventricular hypertrophy. No regional wall motion abnormalities. Grade I/IV diastolic dysfunction (abnormal relaxation filling pattern), normal to mildly elevated filling pressures. Thickened mitral valve. Trace mitral valve regurgitation. Thickened aortic valve. Trace tricuspid valve regurgitation. Estimated pulmonary artery peak systolic pressure 17 mmHg There is no pericardial effusion. There are no intracardiac masses. No similar previous studies are available for comparison Dr Janine Moore MD [facility] (Electronically Signed) Final Date: 08 December 2022 23:06 S
== END 2022-12-07 10:18 | disposition home or self-care (01) ==
LOC: RAD 10:19
PROVIDERS: PCP Family Medicine; Visit Provider Registered Nurse
DX: J44.9 Chronic obstructive pulmonary disease, unspecified (principal); I10 Essential (primary) hypertension; I08.3 Combined rheumatic disorders of mitral, aortic and tricuspid valves
CPT/HCPCS: 93306

== ENCOUNTER → 2023-02-02 11:10 | Outpatient (BNVA) | payer MEDICARE, OTHER, SELFPAY | PROVIDERS: PCP Family Medicine; Visit Provider Internal Medicine Cardiovascular Disease | DX: R00.2 Palpitations (principal); I45.2 Bifascicular block; M05.79 Rheumatoid arthritis with rheumatoid factor of multiple sites without organ or systems involvement; M48.061 Spinal stenosis, lumbar region without neurogenic claudication; R94.31 Abnormal electrocardiogram [ECG] [EKG] | CPT/HCPCS: 93005; 99204 ==

== ENCOUNTER 2023-02-22 08:54 | Oncology outpatient (recurring) (ONCR) | payer MEDICARE, OTHER, SELFPAY ==
[2023-02-22 09:45] VITALS: BP 212/112; PULSE 84; RESP 18; TEMP 36.6; O2SAT 98
[2023-02-22 10:40] LABS: 25 Hydroxy Vitamin D 41 ng/mL (30-100); Albumin Level 4.2 g/dL (3.5-5.2); Calcium 8.9 mg/dL (8.5-10.5)
[2023-02-22] MEDS: denosumab 60 mg SDV SUBCUT (11:04)
[2023-02-22 11:05] VITALS: BP 191/103; PULSE 63; RESP 18; TEMP 36.2; O2SAT 94
== END 2023-03-11 23:59 | disposition home or self-care (01) ==
PROVIDERS: PCP Family Medicine; Visit Provider Internal Medicine Rheumatology
DX: M05.9 Rheumatoid arthritis with rheumatoid factor, unspecified (principal)
CPT/HCPCS: 36415; 82040; 82306; 82310; 82565; 83735; 96372; J0897

== ENCOUNTER 2023-02-22 11:27 | Outpatient (CLI) | payer MEDICARE, OTHER, SELFPAY ==
[2023-02-22 12:31] LABS: Calcium 8.6 mg/dL (8.5-10.5)
[2023-02-22 12:48] LABS: 25 Hydroxy Vitamin D 40 ng/mL (30-100)
== END 2023-02-22 11:28 | disposition home or self-care (01) ==
LOC: LAB 11:37
PROVIDERS: PCP Family Medicine; Visit Provider Internal Medicine Rheumatology
DX: M81.0 Age-related osteoporosis without current pathological fracture (principal); Z79.899 Other long term (current) drug therapy; M05.79 Rheumatoid arthritis with rheumatoid factor of multiple sites without organ or systems involvement
CPT/HCPCS: 36415; 82040; 82306; 82310; 82565; 83735

== ENCOUNTER → 2023-03-23 11:32 | Outpatient (BNVA) | payer MEDICARE, OTHER, SELFPAY | PROVIDERS: PCP Family Medicine; Visit Provider Internal Medicine Rheumatology | DX: M05.79 Rheumatoid arthritis with rheumatoid factor of multiple sites without organ or systems involvement (principal); Z71.85 Encounter for immunization safety counseling; Z79.899 Other long term (current) drug therapy; M81.0 Age-related osteoporosis without current pathological fracture | CPT/HCPCS: 36415; 80076; 85025; 99214 ==

== ENCOUNTER → 2023-06-22 11:52 | Outpatient (BNVA) | payer MEDICARE, OTHER, SELFPAY | PROVIDERS: PCP Family Medicine; Visit Provider Internal Medicine Rheumatology | DX: Z79.899 Other long term (current) drug therapy (principal); M05.79 Rheumatoid arthritis with rheumatoid factor of multiple sites without organ or systems involvement; M81.0 Age-related osteoporosis without current pathological fracture; Z71.85 Encounter for immunization safety counseling | CPT/HCPCS: 99214 ==

== ENCOUNTER 2023-08-18 11:19 | Outpatient (CLI) | payer MEDICARE, OTHER, SELFPAY ==
[2023-08-18 11:58] LABS: Basophils # 0.2 10^3/uL (0.0-0.1); Basophils % 1.5 %; Eosinophils # 0.9 10^3/uL (0.0-0.8); Eosinophils % 8.3 %; Lymphocytes # 3.7 10^3/uL (0.8-4.8); Lymphocytes % 35.8 %; Mean Corpuscular HGB Conc 32.9 g/dL (30-55); Mean Corpuscular Hemoglobin 32.4 pg (27-33); Mean Corpuscular Volume 98.4 fl (85-98); Mean Platelet Volume 10.1 fL (7.4-10.4); Monocytes # 1.2 10^3/uL (0.2-0.9); Monocytes % 11.8 %; Neutrophils # 4.37 10^3/uL (1.8-7.7); Nucleated Red Blood Cells % 0 %; Platelet Count 375 10^3/cmm (157-399); Red Blood Count 3.86 10^6/uL (3.85-5.65); Red Cell Distribution Width 15.7 % (12.1-15.1)
[2023-08-18 12:32] LABS: Alanine Aminotransferase 8 U/L (0-33); Albumin Level 4.2 g/dL (3.5-5.2); Alkaline Phosphatase 56 U/L (35-105); Aspartate Amino Transferase 16 U/L (0-32); Calcium 9.4 mg/dL (8.5-10.5); Globulin 3.1 g/dL (1.3-4.6); Total Bilirubin 0.3 mg/dL (0.15-1.2); Total Protein 7.3 g/dL (6.6-8.7)
[2023-08-18 12:44] LABS: 25 Hydroxy Vitamin D 39 ng/mL (30-100)
== END 2023-08-18 11:20 | disposition home or self-care (01) ==
PROVIDERS: PCP Family Medicine; Visit Provider Internal Medicine Rheumatology
DX: M05.79 Rheumatoid arthritis with rheumatoid factor of multiple sites without organ or systems involvement (principal); Z79.899 Other long term (current) drug therapy; M81.0 Age-related osteoporosis without current pathological fracture
CPT/HCPCS: 36415; 80076; 82085; 82306; 82310; 82565; 85025; 86140

== ENCOUNTER 2023-08-26 09:02 | Oncology outpatient (recurring) (ONCR) | payer MEDICARE, OTHER, SELFPAY ==
[2023-08-26] MEDS: denosumab 60 mg SDV SUBCUT (09:26)
[2023-08-26 09:30] VITALS: BP 155/82; PULSE 57; RESP 17; TEMP 35.6; O2SAT 96
== END 2023-09-11 23:59 | disposition home or self-care (01) ==
LOC: ONCMED 09:04
PROVIDERS: PCP Family Medicine; Visit Provider Internal Medicine Rheumatology
DX: M05.89 Other rheumatoid arthritis with rheumatoid factor of multiple sites (principal)
CPT/HCPCS: 96372; J0897

== ENCOUNTER → 2023-10-12 10:20 | Outpatient (BNVA) | payer MEDICARE, OTHER, SELFPAY | PROVIDERS: PCP Family Medicine; Visit Provider Internal Medicine Rheumatology | DX: Z79.899 Other long term (current) drug therapy (principal); M05.79 Rheumatoid arthritis with rheumatoid factor of multiple sites without organ or systems involvement; Z71.85 Encounter for immunization safety counseling; M81.0 Age-related osteoporosis without current pathological fracture | CPT/HCPCS: 36415; 80076; 82565; 85025; 86140; 99214 ==

== ENCOUNTER → 2023-11-10 13:59 | Outpatient (BNVA) | payer MEDICARE, OTHER, SELFPAY | PROVIDERS: PCP Family Medicine; Visit Provider Internal Medicine Cardiovascular Disease | DX: R00.2 Palpitations (principal); I45.2 Bifascicular block; I10 Essential (primary) hypertension; M05.79 Rheumatoid arthritis with rheumatoid factor of multiple sites without organ or systems involvement; F17.210 Nicotine dependence, cigarettes, uncomplicated | CPT/HCPCS: 99214 ==

== ENCOUNTER → 2024-01-25 09:43 | Outpatient (BNVA) | payer MEDICARE, OTHER, SELFPAY | PROVIDERS: PCP Family Medicine; Visit Provider Internal Medicine Rheumatology | DX: Z79.899 Other long term (current) drug therapy (principal); M05.79 Rheumatoid arthritis with rheumatoid factor of multiple sites without organ or systems involvement; Z71.85 Encounter for immunization safety counseling; M81.0 Age-related osteoporosis without current pathological fracture; R21 Rash and other nonspecific skin eruption | CPT/HCPCS: 11104; 36415; 80053; 85025; 85651; 99204; 99214 ==

== ENCOUNTER → 2024-01-27 12:40 | Outpatient (BNVA) | payer MEDICARE, OTHER, SELFPAY | PROVIDERS: PCP Family Medicine; Visit Provider Nurse Practitioner Family | DX: Z79.899 Other long term (current) drug therapy (principal); M05.79 Rheumatoid arthritis with rheumatoid factor of multiple sites without organ or systems involvement | CPT/HCPCS: 80503 ==

== ENCOUNTER → 2024-02-01 10:16 | Outpatient (BNVA) | payer MEDICARE, OTHER, SELFPAY | PROVIDERS: PCP Family Medicine; Visit Provider Nurse Practitioner Family | DX: L30.9 Dermatitis, unspecified (principal) | CPT/HCPCS: 99214 ==

== ENCOUNTER → 2024-02-14 14:14 | Outpatient (BNVA) | payer MEDICARE, OTHER, SELFPAY | PROVIDERS: PCP Family Medicine; Visit Provider Dermatology | DX: L30.9 Dermatitis, unspecified (principal) | CPT/HCPCS: 11102; 99214 ==

== ENCOUNTER → 2024-02-28 14:10 | Outpatient (BNVA) | payer MEDICARE, OTHER, SELFPAY | PROVIDERS: PCP Family Medicine; Visit Provider Dermatology | DX: L27.0 Generalized skin eruption due to drugs and medicaments taken internally (principal); B37.0 Candidal stomatitis; K13.0 Diseases of lips | CPT/HCPCS: 99214 ==

== ENCOUNTER → 2024-03-14 13:07 | Outpatient (BNVA) | payer MEDICARE, OTHER, SELFPAY | PROVIDERS: PCP Family Medicine; Visit Provider Dermatology | DX: L27.0 Generalized skin eruption due to drugs and medicaments taken internally (principal); B37.0 Candidal stomatitis; K13.0 Diseases of lips | CPT/HCPCS: 99214 ==

== ENCOUNTER → 2024-04-30 14:30 | Outpatient (BNVA) | payer MEDICARE, OTHER, SELFPAY | PROVIDERS: PCP Family Medicine; Visit Provider Dermatology | DX: L27.0 Generalized skin eruption due to drugs and medicaments taken internally (principal); L65.0 Telogen effluvium; B37.0 Candidal stomatitis; K13.0 Diseases of lips | CPT/HCPCS: 99214 ==